=== PATIENT | female | born 1965 | race Caucasian/White ===

== ENCOUNTER 2018-02-08 08:14 | Day surgery (SDC) | payer OTHER ==
[~2018-02-08] VITALS: Ht 160 cm; Wt 94.3 kg
[~2018-02-08 08:14] MED LIST: CIPROFLOXACIN250 MG PO; CORTAID28 GM TOP; DIVIGEL1 EAC1 TD; ESTRACE1 MG PO; FIBER0.52 GM PO; GLUCOSAMINE PO; LOPERAMIDE2 MG; LORAZEPAM1 MG PO; METOPROLOL SUC100 MG PO; NORCO 5-325 TA1 EACH PO; ONCE DAILY1 EACH PO; PREMARIN0.3 MG PO; PROPRANOLOL HC120 MG PO; VITAMIN D2000 UNIT PO
--- NOTE | 2018-02-08 10:45 | NUR ---
02/08/18 1045 Coral Cardoza 1011 PT ARRIVED TO PACU, AWAKE OFF AND ON. VITALS STABLE, 02 AT 2L. ABD SOFT, + FLATUS NOTED. 1020 O2 DECREASED TO RA. VITALS STABLE. 1030 PT AWAKENS TO VOICE. DENIES PAIN, STATES "I AM JUST REALLY SLEEPY." PT BACK TO SLEEP, RESTING COMFORTABLY.
--- NOTE | 2018-02-08 14:52 | NUR ---
PT IN FOR ROUTINE FOLLOW UP SCOPE. PT HAS BEEN BATTLING CANCER,AND REQUESTED PRAYER FOR CLEAN SCOPE. WILL FOLLOW NEEDED
--- NOTE | 2018-02-08 16:45 | OR ---
[facility] [address], [place] [address] Signed DATE OF OPERATION: 02/08/2018 SURGEON: Byron Siu MD PREOPERATIVE DIAGNOSES: 1. Personal history of rectal cancer in 2012. 2. Personal history of recurrent rectal cancer in 2014. 3. Personal history of hyperplastic colonic polyps in 2016. POSTOPERATIVE DIAGNOSES: 1. 4 mm polyp distal right colon. 2. Unremarkable rectal stump. PROCEDURE PERFORMED: Colonoscopy with hot biopsy. ESTIMATED BLOOD LOSS: None. INDICATIONS: Christy is a 52-year-old female who was 1st diagnosed with rectal cancer in 2012. Unfortunately, it recurred in 2014. She therefore had her entire rectum removed and now has a colostomy in the left lower quadrant. She has been doing well since that time. We did remove a little granulation tissue from the rectal staple line in 2017. She has also had hyperplastic colonic polyp removed previously. In the meantime, Christy says she is doing great. Colostomy is functioning well. She has no issues there. No issues with the rectal stump. I gave her a pamphlet in the office on colonoscopy. We once again reviewed that in detail. She certainly understands colonoscopy along with its risks including, but not limited to gas bloating, crampy abdominal pain, bleeding, perforation, requiring surgery, and missed diagnosis. She also understands the need for IV conscious sedation. She had expressed understanding and wished to proceed. PROCEDURE NOTE: Christy was taken into our endoscopy suite and placed in the left lateral decubitus position. She was given a total of 6 mg of Versed and 100 mcg of fentanyl to cover the case. A digital rectal exam was performed and this was unremarkable. Of course, her anal canal is only 2.5 to 3 cm in length. The adult colonoscope was inserted into the rectal stump and we took a look and of course, there is always a little inflammation when there was no stool flowing through the rectum. There was a little opening there, but there was no drainage. No evidence of fistula either endoscopically or clinically. Electronically Signed By: BYRON SIU MD 02/08/18 1645 PATIENT NAME: CHRISTY JIMENEZ OPERATIVE REPORT DATE OF : 65 REPORT #: [id number] PHYSICIAN: BYRON SIU MD PCP: NORMA TORRES MD REPORT IS CONFIDENTIAL AND NOT TO BE RELEASED WITHOUT AUTHORIZATION [facility] [address], [place] [address] Signed After this, Christy was rotated into the supine position. She had to remove her entire colostomy appliance. She does an excellent job taking care of that. A digital exam of the colostomy showed that it is nicely patent without evidence of an obvious parastomal hernia. After this, the adult colonoscope was introduced and advanced under direct visualization of camera down and around to the cecum itself. Her prep was excellent. We could easily see the appendiceal orifice and the ileocecal valve. The scope was then slowly withdrawn. She had just a tiny 4 mm polyp in the distal right colon, which we removed completely with hot biopsy forceps. The rest of the colon was completely unremarkable. We had taken pictures throughout for photodocumentation. Christy tolerated the procedure quite well. RECOMMENDATIONS: I will see Christy back in my office in 7 to 14 days to review her results. It looks like she will be able to wait 3 years for her next colonoscopy. Byron Siu MD ALB/MODL /[id number] cc: MD Jones Maldonado DO Mark Whiteford, MD Andrew L Bower, DO Norma Gordillo MD Copies: GAYLE JOHNSON MD,YONNY PEREIRA MD Electronically Signed By: BYRON SIU MD 02/08/18 1645 PATIENT NAME: CHRISTY JIMENEZ OPERATIVE REPORT DATE OF : 65 REPORT #: [id number] PHYSICIAN: BYRON SIU MD PCP: NORMA TORRES MD REPORT IS CONFIDENTIAL AND NOT TO BE RELEASED WITHOUT AUTHORIZATION [facility] [address] [place], [place] [address] Signed BYRON SIU MD, BRYCE DO HITZMAN, JONATHAN MD ~ Electronically Signed By: BYRON SIU MD 02/08/18 1645 PATIENT NAME: BARBARACHRISTY MUNDO OPERATIVE REPORT DATE OF : 65 REPORT #: [id number] PHYSICIAN: BYRON SIU MD PCP: NORMA TORRES MD REPORT IS CONFIDENTIAL AND NOT TO BE RELEASED WITHOUT AUTHORIZATION
== END 2018-02-08 11:11 | disposition home or self-care (01) ==
LOC: OPS 08:14 → DS 08:14 → OPS 09:45
PROVIDERS: Colon & Rectal Surgery
PROC: 0DBF8ZZ Excision of Right Large Intestine, Via Natural or Artificial Opening Endoscopic (ICD-10-PCS; principal; 2018-02-08 09:45)
DX: K63.5 Polyp of colon (principal); I10 Essential (primary) hypertension; K21.9 Gastro-esophageal reflux disease without esophagitis; M17.0 Bilateral primary osteoarthritis of knee; M19.031 Primary osteoarthritis, right wrist; M19.032 Primary osteoarthritis, left wrist; Z98.890 Other specified postprocedural states; Z85.040 Personal history of malignant carcinoid tumor of rectum; Z86.010 Personal history of colon polyps; Z93.3 Colostomy status; Z90.49 Acquired absence of other specified parts of digestive tract; Z88.0 Allergy status to penicillin; Z88.8 Allergy status to other drugs, medicaments and biological substances; Z79.899 Other long term (current) drug therapy
CPT/HCPCS: 99153; G0500; J2250; J3010; J7120

== ENCOUNTER 2023-04-05 07:48 | Day surgery (SDC) | payer OTHER ==
[2023-04-03 09:36] VITALS: BP 144/79
[~2023-04-05] VITALS: Ht 160 cm; Wt 100.9 kg
[~2023-04-05 07:48] MED LIST changes: +CELEBREX200 MG PO; +DOXYCYCLINE HYC50 MG PO; +MELATONIN10 M2 PO
[2023-04-05 08:01] VITALS: BP 152/88
[2023-04-05 10:13] VITALS: BP 118/67
[2023-04-05 11:09] VITALS: BP 140/75
--- NOTE | 2023-04-05 13:59 | OR ---
[facility] [place] [facility] [address] [place], [place] [address] Signed DATE OF OPERATION: 04/05/2023 SURGEON: Byron Siu MD PREOPERATIVE DIAGNOSIS: Midline frontal Pilar scalp cyst (4 x 5 mm). 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 PROCEDURE: Excision of Pilar cyst. ESTIMATED BLOOD LOSS: Minimal. INDICATIONS: Christy is a 57-year-old female, I have known for many years. On this occasion, she came to the office with a Pilar cyst in the midline of her frontal scalp. She thinks it has been there a year or two. She said it is getting larger. She says it is very painful particularly when she has to brush her hair. She also is employed as an sociology teacher. She is very conscious of the fact she has a Pilar cyst sticking up through her hair in the front of her head. She had gone to her primary care provider. She was asked to see me as a local general surgeon to have it removed. In the office, I explained to Christy the nature of a Pilar cyst. I explained that the scalp was extremely well vascularized and it is best to do this in the OR with needle-tip cautery and good lighting and suction to make sure we get the entire cyst wall removed, otherwise, they have a propensity to recur. She understands it will be a day surgery. There is risk including, but not limited to bleeding, infection, scarring, change in contour of the skin as well as recurrent cyst in the same or other locations. She had expressed understanding and wished to proceed. DESCRIPTION OF PROCEDURE: I met with Christy and her in our preop area with our nurse. We could all easily identify this Pilar cyst on her frontal scalp. We marked it appropriately. After this, Christy was taken to the operating room and placed in the supine position under general LMA anesthesia. She was given preoperative antibiotics along with subcutaneous heparin. SCDs were utilized. She was then prepped and draped in the usual sterile fashion. We just used scissors to cut a bit of the hair away over the cyst. We used our typical Betadine prep. We used our plastic adhesive draping over her forehead Electronically Signed By: BYRON SIU MD 04/05/23 1359 PATIENT NAME: CHRISTY JIMENEZ OPERATIVE REPORT DATE OF : 65 REPORT #: [id number] PHYSICIAN: BYRON SIU MD PCP: THALIA PARRA PA-C REPORT IS CONFIDENTIAL AND NOT TO BE RELEASED WITHOUT AUTHORIZATION [facility] [place] [facility] [address] [place], [place] [address] Signed to provide a barrier between her LMA and the area of the cyst during cautery. I had injected local anesthetic in and around and underneath the lesion. An oblique incision was made around the lesion with the help of the 15 blade knife. A little bit of came through the top and it took just a minute with the needle-tip cautery to work our way around the Pilar cyst. As we came underneath of course, it was bleeding. We took a couple minutes to find that small bleeder controlled with our needle-tip cautery. After that, we finished the dissection. On visual inspection, it looks like the entire cyst and cyst wall was completely removed. I injected some additional local anesthetic in the base of the lesion. The wound was irrigated and suctioned out. We used interrupted 4-0 nylon simple sutures to bring the incision back together. Two stitches have been placed. No antibiotic or dry gauze was placed. Christy was then awakened from her anesthesia, extubated in the OR, and taken to recovery room in stable condition. Byron Siu MD ALB/MODL /[id number] cc: MD Thalia Mendoza PA-C Copies: BYRON SIU MD, CHLOE K PA-C ~ Electronically Signed By: BYRON SIU MD 04/05/23 1359 PATIENT NAME: CHRISTY JIMENEZ [facility] OPERATIVE REPORT DATE OF : 65 REPORT #: [id number] PHYSICIAN: BYRON SIU MD PCP: THALIA PARRA PA-C REPORT IS CONFIDENTIAL AND NOT TO BE RELEASED WITHOUT AUTHORIZATION
--- NOTE | 2023-04-07 16:48 | PATH ---
[facility] [address] [place], [place] [address] Signed SPECIMEN(S): A FRONTAL SCALP PILAR CYST SPECIMEN SOURCE: A. FRONTAL SCALP PILAR CYST CLINICAL HISTORY: Pilar cyst. FINAL PATHOLOGIC DIAGNOSIS: Front scalp, pilar cyst: - Benign pilar cyst. JVR:riky MICROSCOPIC EXAMINATION: Histologic sections of all submitted blocks are examined by light microscopy. These findings, together with the gross examination, support the pathologic diagnosis. GROSS DESCRIPTION: The specimen, labeled and designated "Trejo, frontal scalp pilar cyst," is received in formalin and consists of pink-crowley, firm, smooth tissue fragment that measures 0.8 cm in diameter. Specimen is inked. Sectioning through the specimen to reveal cysts that measure 0.6 cm in diameter. The cyst is filled with a carreon-crowley, friable material. Entirely submitted in (A1). JS (under the direct supervision of a pathologist) The Gross Description was prepared using a voice recognition system. The report was reviewed for accuracy; however, sound-alike word errors, addition and/or deletions may occur. If there is any question about this report, please contact Client Services. PERFORMING LABORATORY: Technical component was performed by [facility], [address] [place] [id number] (CLIA# [id number]). Professional interpretation was performed by [facility] - [facility], [address] [place] [phone] (CLIA#: [id number]). Diagnostician: Sumeet Foreman MD Pathologist Electronically Signed 04/07/2023 PATIENT NAME: CHRISTY TREJO PATHOLOGY DATE OF : 65 REPORT #: [id number] PHYSICIAN: JEREMY PATHOLOGY PCP: ZAY PARRA PA-C REPORT IS CONFIDENTIAL AND NOT TO BE RELEASED WITHOUT AUTHORIZATION [address] [address] Signed Copies: ~ PATIENT NAME: CHRISTY TREJO PATHOLOGY DATE OF : 65 REPORT #: [id number] PHYSICIAN: JEREMY PATHOLOGY PCP: ZAY PARRA PA-C REPORT IS CONFIDENTIAL AND NOT TO BE RELEASED WITHOUT AUTHORIZATION
== END 2023-04-05 11:25 | disposition home or self-care (01) ==
LOC: DS 07:48
PROVIDERS: ATTEND Colon & Rectal Surgery
PROC: 0HB0XZZ Excision of Scalp Skin, External Approach (ICD-10-PCS; principal; 2023-04-05 08:50)
DX: L72.11 Pilar cyst (principal); I10 Essential (primary) hypertension; E78.5 Hyperlipidemia, unspecified; M16.12 Unilateral primary osteoarthritis, left hip; M17.11 Unilateral primary osteoarthritis, right knee; Z88.0 Allergy status to penicillin; Z86.16 Personal history of COVID-19; Z85.038 Personal history of other malignant neoplasm of large intestine
CPT/HCPCS: 00300; J0690; J1644; J2405; J2704; J3010; J7121

== ENCOUNTER 2024-01-05 10:22 | Emergency (ER) | payer OTHER ==
[~2024-01-05] VITALS: Ht 160 cm; Wt 97.0 kg
--- OUTSIDE RECORDS SUMMARY | 2024-01-05 10:23 | XMS ---
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 [facility] has no Care Guidelines for this patient. Dionisio VISIT COUNT (12 MO.) 1 EMANUEL Suarez TOTAL 1 NOTE: Visits indicate total known visits. ED/C VISIT TRACKING (12 MO.) 01/05/2024 10:23 EMANUEL Beltran OR TYPE: Emergency COMPLAINT: - POST OP PROBLEM INPATIENT VISIT TRACKING (12 MO.) No inpatient visits to display in this time frame [email or web address]
[2024-01-05] MEDS ORDERED: ASPIRIN325 MG PO (11:04)
[2024-01-05] MEDS ORDERED: OXYCODONE-ACET1 EAC1 PO (11:05)
[2024-01-05] MEDS ORDERED: METOCLOPRAMIDE10 MG PO (11:05)
[2024-01-05] MEDS ORDERED: PANTOPRAZOLE SO40 MG PO (11:05)
[2024-01-05] MEDS ORDERED: STOOL SOFTENER1 EACH PO (11:06)
[2024-01-05] MEDS ORDERED: HYDROmorphone HCL 1 MG/ML SYR IV ONE (13:00)
[2024-01-05] MEDS ORDERED: ondansetron HCL 4 MG/2 ML VIAL IV ONE (13:00)
[2024-01-05] MEDS ORDERED: SODIUM CHLORIDE 0.9% 1,000 ML IV PRN (13:00)
[2024-01-05 14:48] VITALS: BP 147/84
== END 2024-01-05 14:51 | disposition home or self-care (01) ==
LOC: ED 10:22
DX: G89.18 Other acute postprocedural pain (principal); Z88.8 Allergy status to other drugs, medicaments and biological substances; Z79.82 Long term (current) use of aspirin; Z79.899 Other long term (current) drug therapy
CPT/HCPCS: 96374; 96375; 99283-25; J1170; J2405; J7030